=== PATIENT | male | born 1960 | race Two or more races ===

== ENCOUNTER → 2023-04-14 | Outpatient (CLI) | payer OTHER | END | disposition home or self-care (01) | LOC: XYW 07:56 | PROVIDERS: ATTEND Internal Medicine | DX: I07.1 Rheumatic tricuspid insufficiency (principal); R06.00 Dyspnea, unspecified | CPT/HCPCS: 93306 ==

== ENCOUNTER → 2023-05-19 | Outpatient (CLI) | payer OTHER ==
[~2023-05-19] VITALS: Ht 185.4 cm; Wt 149.7 kg
[~2023-05-19] MED LIST: ADENOSINE 126 MG in GIVE UN-DILUTED 0 ML IV STA
[2023-05-19] MEDS: ADENOSINE 126 MG in GIVE UN-DILUTED 0 ML IV STA (09:26)
== END | disposition home or self-care (01) ==
LOC: XYW 08:00
PROVIDERS: ATTEND Internal Medicine
DX: R06.00 Dyspnea, unspecified (principal); J81.0 Acute pulmonary edema; I10 Essential (primary) hypertension; E78.5 Hyperlipidemia, unspecified
CPT/HCPCS: 78452; 93017; A9500; J0153